=== PATIENT | female | born 1930 | race Caucasian/White ===

== ENCOUNTER 2016-08-30 09:45 | Emergency (ER) | payer OTHER, MEDICAID ==
--- NOTE | 2016-08-30 09:53 | EDPHY ---
HPI/HX/ROS/PE/MDM Narrative: CHIEF COMPLAINT: Chest pain HPI: The patient is an 80 year old female, brought in by EMS, with history of CHF and COPD, who complains of chest pain that started 1 hour ago. The patient complains of pain substernally. Over the last 24 hours she has developed a productive cough. She had a chest x-ray done yesterday. Patient received 324mg Aspirin during transport and her chest pain improved. Vital in the field, BP: 152/84. Patient is chronically on supplemental oxygen. REVIEW OF SYSTEMS: Aside from elements discussed in the HPI, a comprehensive 10-point review of systems was reviewed and is negative. PMH: Malignant carcinoid tumor of cecum, Hear failure, Dementia, COPD, Anxiety. SOCIAL HISTORY: Resides at [facility]. PHYSICAL EXAM: General: Patient is alert, in no acute distress. ENT: Eyes are normal to inspection. ENT inspection normal. Neck: Normal inspection. Full range of motion. Respiratory: Mild rhonchi bilaterally. Cardiovascular: Regular rate and rhythm. Strong peripheral pulses. Abdomen: The abdomen is nontender to palpation. There are no peritoneal signs. There are normal bowel sounds. Back: Normal to inspection. No tenderness to palpation. Skin: Normal color. No rash. Warm and dry. Extremities: Normal appearance. Full range of motion. Neuro: Oriented x3. Normal motor function. Normal sensory function. ED Course: Patient is refusing IV. She has comfort measures only. The patient case manager is going to speak to the family to discuss admission. The patient's family is ok with the patient returning to [facility]. Staff at [facility] are comfortable with the patient returning. MDM: This patient arrives with chest pain but refusing medical workup or IV. She is quite agitated and yelling frequently. She arrives with paperwork that clearly states she is Comfort Measures Only. Our patient case manager was able to talk to her DPOA, who is comfortable with the plan to return the patient to her residence without further workup. She understands we have been unable to perform any testing in the ED. The etiology of her symptoms is unknown but we will respect her wishes to not be stuck with a needle and to return home. General Time Seen by Provider: 08/30/16 09:45 Initial Vital Signs: Initial Vital Signs Temperature (C) 38 C 08/30/16 09:54 Heart Rate 117 H 08/30/16 09:54 Respiratory Rate 22 H 08/30/16 09:54 Blood Pressure 98/69 L 08/30/16 09:54 O2 Sat (%) 92 08/30/16 09:54 O2 Delivery Mode Nasal Cannula O2 (L/minute) 2 Allergies/Adverse Reactions: No Known Allergies Allergy (Verified 08/30/16 09:54) Home Medications: Medication Instructions Recorded Acetaminophen [Tylenol 325mg (*)] 650 mg PO Q6 PRN 04/04/15 Furosemide [Lasix 20 MG (*)] 20 mg PO BIDDIUR 04/04/15 Ipratropium/Albuterol [Duoneb (*)] 3 ml IH BID 04/04/15 LORazepam [Ativan (*)] 0.5 mg PO Q12 PRN 04/04/15 Levothyroxine Sodium 200 mcg PO DAILY@0500 04/04/15 Levothyroxine [Synthroid 50 mcg 50 mcg PO DAILY@05 04/04/15 (*)] Magnesium Hydroxide [Milk of 30 ml PO PRN PRN 04/04/15 Magnesia (*)] Magnesium Hydroxide/Al Hydrox 30 ml PO Q4 PRN 04/04/15 [Mylanta Liquid] Nitroglycerin [Nitrostat 0.4 mg 0.4 mg SL PRN PRN 04/04/15 (*)] Polyethylene Glycol 3350 [Miralax 17 gm PO DAILY 04/04/15 17 gm (*)] Prochlorperazine Maleate 10 mg PO Q12 PRN 04/04/15 [Compazine 10mg (*)] Sennosides/Docusate Sodium 4 each PO BID 04/04/15 [Senna-Docusate Sodium Tablet] Simethicone [Gas Relief] 125 mg PO Q6 PRN 04/04/15 carBAMazepine ER [Tegretol Xr] 300 mg PO BID 04/04/15 guaiFENesin [Robitussin Oral 200 mg PO Q4 PRN 04/04/15 Liquid (*)] amLODIPine BESYLATE [Norvasc 2.5 2.5 mg PO DAILY #0 tab 04/07/15 mg (*)] morphINE SR [Ms Contin/Oramorph Sr] 30 mg PO TID #0 tab 04/07/15 Departure - Departure Disposition: Home, Routine, Self-Care Clinical Impression: Chest pain Qualifiers: Chest pain type: unspecified Qualified Code(s): R07.9 - Chest pain, unspecified Condition: Good Instructions: Chest Pain (ED) Additional Instructions: Follow-up with your primary doctor as needed. Return to the Emergency Department for fever, chest pain, shortness of breath, increasing pain or other worsening of condition. Referrals: ANGELINA CALL [Medical Doctor] - As per Instructions Report Scribed for: Nnamdi Encinas Report Scribed by: Elena Dhillon Date of Report: 08/30/16 Time of Report: 09:53
--- NOTE | 2016-08-30 09:56 | CPEKG ---
Heart Rate: 112 RR Interval: 536 P-R Interval: 136 QRSD Interval: 74 QT Interval: 328 QTC Interval: 448 P [place]: 41 QRS [place]: 12 T Wave [place]: 74 EKG Severity - ABNORMAL ECG - EKG Impression: SINUS TACHYCARDIA EKG Impression: MULTIPLE ATRIAL PREMATURE COMPLEXES EKG Impression: PROBABLE POSTERIOR INFARCT Electronically Signed By: Nnamdi Encinas 30-Aug-2016 14:40:24
[2016-08-30 12:14] VITALS: BP 102/76; PULSE 107; RESP 18; TEMP 100.6; O2SAT 93
== END 2016-08-30 12:12 | disposition home or self-care (01) ==
LOC: EDUNIT#
DX: R07.9 Chest pain, unspecified (principal)